=== PATIENT | female | born 1940 | race Caucasian/White ===

== ENCOUNTER 2016-10-30 17:39 | Emergency (ER) | payer MEDICARE, OTHER ==
[2016-10-30] MEDS ORDERED: HYDROcod/ACETAM 5/325 MG TABLET PO STA (18:09)
[2016-10-30] MEDS ORDERED: AMOX/CLAV 875 MG/125 MG TABLET PO STA (18:09)
--- NOTE | 2016-10-30 18:12 | ED Physician Documentation ---
PD HPI ABD PAIN - Stated complaint Stated Complaint: ABD PX - Chief complaint Chief Complaint: Abd Pain - History obtained from History obtained from: Patient, Family - History of Present Illness Timing - onset: Last night Timing - duration: Days (1) Timing - details: Gradual onset Pain level max: 6 Pain level now: 5 Quality: Aching, Pain Location: LLQ Improved by: Other (nothing) Worsened by: Other (nothing) Associated symptoms: Diarrhea. No: Fever, Nausea, Vomiting, Hematemesis, Constipation, Melena, Hematochezia, Dysuria Similar symptoms before: Diagnosis (diverticulitis 5 times in the past) - Additional information Additional information: Patient is a 76-year-old female who presents to the emergency department with left lower quadrant abdominal pain since last night. She states that this is similar to the 5 prior episodes of diverticulitis that she has had in the past. No fever. No vomiting. PD PAST MEDICAL HISTORY - Past Medical History Past Medical History: Yes Cardiovascular: Hypertension, High cholesterol Endocrine/Autoimmune: HyPOthyroidism Other Past Medical History: recurrent diverticulitis - Present Medications Home Medications: Ambulatory Orders Medication Instructions Recorded Confirmed Amox/Clav 875/125 [Augmentin] 1 each PO Q12H #20 tablet 10/30/16 Aspirin Chewable [[place] 1 tab PO DAILY 10/30/16 10/30/16 Aspirin] Butalbital/Aspirin/Caffeine 1 tab PO PRN PRN 10/30/16 10/30/16 [Fiorinal 50-325-40 mg Capsule] Fluticasone [Flonase] 1 spray BETHANY PRN PRN 10/30/16 10/30/16 Hydrocodone/Acetaminophen 1 - 2 each PO Q6H PRN #10 tablet 10/30/16 [Hydrocodon-Acetaminophen 5-325] Levothyroxine [Synthroid] 1 tab PO DAILY 10/30/16 10/30/16 Losartan [Cozaar] 1 tab PO DAILY 10/30/16 10/30/16 Lovastatin 1 tab PO DAILY 10/30/16 10/30/16 Magnesium 1 tab PO BID 10/30/16 10/30/16 Primidone 1 tab PO DAILY 10/30/16 10/30/16 amLODIPine [Norvasc] 1 tab PO DAILY 10/30/16 10/30/16 traZODone [Desyrel] 1 tab PO DAILY 10/30/16 10/30/16 - Allergies Allergies/Adverse Reactions: Allergies Allergy/AdvReac Type Severity Reaction Status Date / Time propoxyphene napsylate * Allergy Itching Verified 10/30/16 17:56 [From Darvocet-N] acetaminophen [From Tylox] AdvReac Nausea Verified 10/30/16 17:56 celecoxib [From Celebrex] AdvReac diarrhea Verified 10/30/16 17:56 oxycodone HCl * [From Tylox] AdvReac Nausea Verified 10/30/16 17:56 - Living Situation Living Situation: reports: With family Living Arrangement: reports: At home - Social History Does the pt smoke?: No Does the pt have substance abuse?: No - Family History Family history: reports: Non contributory - Immunizations Immunizations are current?: No PD ED PE NORMAL - Vitals Vital signs reviewed: Yes - General General: Alert and oriented X 3, No acute distress, Well developed/nourished - HEENT HEENT: PERRL, Moist mucous membranes - Neck Neck: Supple, no meningeal sign - Cardiac Cardiac: RRR, Strong equal pulses - Respiratory Respiratory: No respiratory distress, Clear bilaterally - Abdomen Abdomen: Soft, Non distended, Other (Mild tenderness to palpation left lower quadrant without peritoneal signs.) - Back Back: No CVA TTP - Derm Derm: Warm and dry - Neuro Neuro: Alert and oriented X 3 - Psych Psych: Normal mood, Normal affect Results - Vitals Vitals: Vital Signs - 24 hr 10/30/16 10/30/16 17:52 19:45 Temperature 37.0 C Heart Rate 74 71 Respiratory 14 18 Rate Blood Pressure 149/56 H 136/75 H O2 Saturation 96 98 Oxygen O2 Source Room air - Labs Labs: Laboratory Tests 10/30/16 10/30/16 10/30/16 18:48 18:48 18:53 WBC 7.2 RBC 4.26 Hgb 12.9 Hct 38.1 MCV 89.6 MCH 30.3 MCHC 33.8 RDW 13.8 Plt Count 167 MPV 8.9 Neut # 5.3 Lymph # 1.2 L [place] # 0.7 Eos # 0.0 Baso # 0.0 Absolute Nucleated RBC 0.01 Nucleated RBCs 0.1 Sodium 137 Potassium 4.1 Chloride 99 L Carbon Dioxide 29 Anion Gap 9.0 BUN 14 Creatinine 0.6 Estimated GFR (MDRD) 97 Glucose 93 Calcium 9.2 Total Bilirubin 1.0 AST 19 ALT 13 Alkaline Phosphatase 101 Total Protein 6.6 L Albumin 3.9 Globulin 2.7 Albumin/Globulin Ratio 1.4 Lipase 19 L Urine Color YELLOW Urine Clarity CLEAR Urine pH 6.5 Ur Specific [place] <=1.005 Urine Protein NEGATIVE Urine Glucose (UA) NEGATIVE Urine Ketones NEGATIVE Urine Occult Blood TRACE-LYSE Urine Nitrite NEGATIVE Urine Bilirubin NEGATIVE Urine Urobilinogen 0.2 (NORMAL) Ur Leukocyte Esterase NEGATIVE Ur Microscopic Review NOT INDICATED Urine Culture Comments NOT INDICATED PD MEDICAL DECISION MAKING - ED course Complexity details: reviewed results, re-evaluated patient, considered differential, d/w patient, d/w family ED course: Patient is a 76-year-old female with a history of recurrent diverticulitis. Symptoms are consistent with diverticulitis today. We did discuss a CT scan, but given her relatively recent onset of findings, normal white count, no fever and mild abdominal pain, we will treat her symptomatically with antibiotics and she will return if she worsens. She does understand that we could miss a perforation or abscess, alternate dx, by not CT scanning and is comfortable with this. Patient and family counseled regarding signs and symptoms for which I believe and urgent re-evaluation would be necessary. Patient with good understanding of and agreement to plan and is comfortable going home at this time This document was made in part using voice recognition software. While efforts are made to proofread this document, sound alike and grammatical errors may occur. Departure - Departure Disposition: 01 Home, Self Care Clinical Impression: Diverticulitis Qualifiers: Diverticulitis site: large intestine Diverticulitis bleeding: without bleeding Diverticulitis complication: without perforation or abscess Qualified Code(s): K57.32 - Diverticulitis of large intestine without perforation or abscess without bleeding Condition: Good Instructions: ED Diverticulitis Follow-Up: your,doctor in 3 days. [Other] Prescriptions: Amox/Clav 875/125 [Augmentin] 1 each PO Q12H #20 tablet Hydrocodone/Acetaminophen [Hydrocodon-Acetaminophen 5-325] 1 - 2 each PO Q6H PRN #10 tablet PRN Reason: pain Comments: Return if you worsen. This should significantly improve in the next 24-48 hours. If you are worsening or failing to improve, even prior to that time, return for further evaluation. Do not drink alcohol or drive while on narcotic pain medicine. Note that many narcotic pain relievers also contain tylenol/acetaminophen. Please ensure that your total dose of acetaminophen from all sources does not exceed 3 grams (3000mg) per day. You may constipated on this medication, take a stool softener such as "Colace" twice a day while you are on it. Also recommend a [id number] laxative such as senna or MiraLAX any day that you do not have a bowel movement. If you received narcotic pain medication in the emergency department, do not drive or operate machinery for the next 24 hours. Discharge Date/Time: 10/30/16 19:52
[2016-10-30] MEDS ORDERED: AMOX/CLAV 875 MG/125 MG TABLET PO ONE (18:18)
[2016-10-30] MEDS ORDERED: HYDROcod/ACETAM 5/325 MG TABLET ONE (18:19)
[2016-10-30 19:14] LABS: BILIRUBIN,URINE NEGATIVE (NEGATIVE); PH,URINE 6.5 PH (5.0-7.5)
[2016-10-30 19:14] LABS: BASOPHILS % (AUTO) 0.6 %; EOSINOPHILS % (AUTO) 0.5 %; HCT - HEMATOCRIT 38.1 % (37.0-47.0); HGB - HEMOGLOBIN 12.9 g/dL (12.0-16.0); LYMPHOCYTES # (AUTO) 1.2 10^3/uL (1.5-3.5); LYMPHOCYTES % (AUTO) 16.2 %; MEAN CORPUSCULAR HEMOGLOBIN 30.3 pg (27.0-31.0); MEAN CORPUSCULAR HGB CONC 33.8 g/dL (32.0-36.0); MEAN CORPUSCULAR VOLUME 89.6 fL (81.0-99.0); MEAN PLATELET VOLUME 8.9 fL (7.9-10.8); MONOCYTES # (AUTO) 0.7 10^3/uL (0.0-1.0); MONOCYTES % (AUTO) 9.5 %; NEUTROPHILS # (AUTO) 5.3 10^3/uL (1.5-6.6); NEUTROPHILS % (AUTO) 73.2 %; NUCLEATED RED BLOOD CELLS AUTO 0.1 /100WBC; RED BLOOD COUNT 4.26 10^6/uL (4.20-5.40); RED CELL DISTRIBUTION WIDTH 13.8 % (12.0-15.0); UNCORRECTED WHITE BLOOD COUNT 7.2 x10^3/uL; WHITE BLOOD COUNT 7.2 x10^3/uL (4.8-10.8)
[2016-10-30 19:16] LABS: UA CHARGE (STRIP ONLY) YES; UR CULTURE IF IND NOT INDICATED
[2016-10-30 19:24] LABS: ALBUMIN/GLOBULIN RATIO 1.4 (1.0-2.2); CALCIUM 9.2 mg/dL (8.5-10.3); CREATININE 0.6 mg/dL (0.4-1.0); POTASSIUM 4.1 mmol/L (3.5-5.0); TOTAL PROTEIN 6.6 g/dL (6.7-8.2)
[2016-10-30 19:52] VITALS: BP 136/75
== END 2016-10-30 19:52 | disposition home or self-care (01) ==
LOC: ED 17:39
DX: K57.32 Diverticulitis of large intestine without perforation or abscess without bleeding (principal); Z87.19 Personal history of other diseases of the digestive system; I10 Essential (primary) hypertension
CPT/HCPCS: 36415; 80053; 81003; 83690; 85025; 99283; A9270; 81001; 87086